=== PATIENT | female | born 1990 | race Caucasian/White ===

== ENCOUNTER 2022-01-06 20:56 | Observation (INO) | payer OTHER ==
[2022-01-06] MEDS ORDERED: MAG HYDROX/AL HYDROX/SIMETH 30 ML UNIT-DOSE CUP PO ONE (23:10)
[2022-01-06] MEDS ORDERED: FAMOTIDINE 20 MG/50 ML IVPB 20 MG/50 ML MG IVPB ONE ×2 (23:10→23:21)
[2022-01-06] MEDS ORDERED: ONDANSETRON 4 MG/2 ML VIAL IVPUSH ONE (23:10)
[2022-01-06] MEDS ORDERED: ACETAMINOPHEN 1000 MG/100 ML BAG IVPB ONE (23:10)
[2022-01-06] MEDS ORDERED: ONDANSETRON 4 MG/2 ML VIAL ONE (23:21)
[2022-01-06] MEDS ORDERED: MAG HYDROX/AL HYDROX/SIMETH 30 ML UNIT-DOSE CUP ONE (23:21)
[2022-01-06] MEDS ORDERED: ACETAMINOPHEN INJECTION 100 ML IVPB ONE (23:21)
[2022-01-06] MEDS ORDERED: LACTATED RINGERS SOLUTION 1000 ML INFUS.BAG IV ONE (23:44)
[2022-01-06 23:53] LABS: BASO % 0.4 % (0-2.0); EOS % 0.2 % (0-4.5); HEMATOCRIT 42.1 % (32.4-45.2); HEMOGLOBIN 14.6 GM/dL (10.7-15.3); LYMPH % 12.9 % (8-40); MCH 31.4 pg (25.7-33.7); MCHC 34.6 g/dl (32.0-36.0); MEAN CELL VOLUME 90.6 fl (80-96); MONO % 7.3 % (3.8-10.2); NEUT % 79.2 % (42.8-82.8); PLATELET COUNT 329 10^3/uL (134-434); RBC 4.64 M/mm3 (3.60-5.2); RDW 12.2 % (11.6-15.6)
[2022-01-07 00:11] LABS: PH,URINE 8.5 (5.0-8.0); URINE APPEARANCE CLEAR; URINE BILIRUBIN NEGATIVE (NEGATIVE); URINE COLOR YELLOW; URINE GLUCOSE (UA) NEGATIVE (NEGATIVE); URINE KETONE 1+ (NEGATIVE); URINE LEUK ESTERASE NEGATIVE (NEGATIVE); URINE NITRITE NEGATIVE (NEGATIVE); URINE PROTEIN NEGATIVE (NEGATIVE); URINE UROBILINOGEN 0.2 mg/dL (0.2-1.0)
[2022-01-07 00:18] LABS: ALBUMIN 4.3 g/dl (3.4-5.0); BLOOD UREA NITROGEN 6.5 mg/dL (7-18); CALCIUM 9.4 mg/dL (8.5-10.1)
[2022-01-07 00:21] LABS: CREATININE 0.7 mg/dL (0.55-1.3); INR 1.16 (0.83-1.09); PROTHROMBIN TIME (PATIENT) 13.4 SEC (9.7-13.0)
[2022-01-07 00:23] LABS: BILIRUBIN,TOTAL 0.4 mg/dL (0.2-1)
[2022-01-07 00:24] LABS: ACTIVATED PTT 30.2 SECONDS (25.2-36.5)
[2022-01-07] MEDS ORDERED: KETOROLAC TROMETHAMINE 15 MG/ML VIAL IVPUSH ONE (03:21)
[2022-01-07] MEDS ORDERED: KETOROLAC TROMETHAMINE 15 MG/ML VIAL ONE (03:35)
[2022-01-07] MEDS ORDERED: ONDANSETRON 4 MG/2 ML VIAL IVPUSH PRN (04:26)
[2022-01-07] MEDS ORDERED: KETOROLAC TROMETHAMINE 30 MG/1 ML VIAL IM PRN (04:28)
[2022-01-07] MEDS ORDERED: ACETAMINOPHEN 1000 MG/100 ML BAG IVPB PRN (04:28)
[2022-01-07] MEDS: SODIUM CHLORIDE 1,000 ML IV SCH (04:45)
[2022-01-07] MEDS ORDERED: ENOXAPARIN NA (PORCINE) 40 MG/0.4 ML DISP.SYRIN SQ ONE (08:47)
[2022-01-07] MEDS ORDERED: ENOXAPARIN NA (PORCINE) 40 MG/0.4 ML DISP.SYRIN SQ SCH (10:00)
[2022-01-07 10:01] LABS: BASO % 0.6 % (0-2.0); EOS % 0.8 % (0-4.5); LYMPH % 19.6 % (8-40); MCH 31.9 pg (25.7-33.7); MCHC 35.1 g/dl (32.0-36.0); MEAN CELL VOLUME 90.9 fl (80-96); MEAN PLT VOLUME 8.6 fl (7.5-11.1); MONO % 10.5 % (3.8-10.2); NEUT % 68.5 % (42.8-82.8); PLATELET COUNT 278 10^3/uL (134-434); RBC 4.08 M/mm3 (3.60-5.2); RDW 12.5 % (11.6-15.6); WHITE BLOOD COUNT 8.5 K/mm3 (4.0-10.0)
[2022-01-07] MEDS ORDERED: MAG HYDROX/AL HYDROX/SIMETH 30 ML UNIT-DOSE CUP PO PRN (14:14)
[2022-01-07] MEDS: POLYETHYLENE GLYCOL (HEALTHYLAX) 3350 17 GM PACKET PO SCH (23:03)
[2022-01-07] MEDS ORDERED: POLYETHYLENE GLYCOL (HEALTHYLAX) 3350 17 GM PACKET ONE (23:55)
[2022-01-08] MEDS: SODIUM CHLORIDE 1,000 ML IV SCH (04:01)
[2022-01-08 04:44] VITALS: BMI 26.4
[2022-01-08 09:04] LABS: BASO % 0.4 % (0-2.0); EOS % 1.3 % (0-4.5); HEMATOCRIT 38.3 % (32.4-45.2); HEMOGLOBIN 13.1 GM/dL (10.7-15.3); LYMPH % 23.3 % (8-40); MCH 31.4 pg (25.7-33.7); MCHC 34.3 g/dl (32.0-36.0); MEAN CELL VOLUME 91.4 fl (80-96); MEAN PLT VOLUME 9.3 fl (7.5-11.1); MONO % 11.2 % (3.8-10.2); NEUT % 63.8 % (42.8-82.8); PLATELET COUNT 289 10^3/uL (134-434); RBC 4.19 M/mm3 (3.60-5.2); RDW 12.8 % (11.6-15.6); WHITE BLOOD COUNT 8.2 K/mm3 (4.0-10.0)
[2022-01-08 09:30] LABS: BLOOD UREA NITROGEN 5.6 mg/dL (7-18)
[2022-01-08 09:33] LABS: CALCIUM 8.5 mg/dL (8.5-10.1); CREATININE 0.7 mg/dL (0.55-1.3); MAGNESIUM 2.3 mg/dL (1.8-2.4); PHOSPHOROUS 3.7 mg/dL (2.5-4.9)
[2022-01-08] MEDS ORDERED: PANTOPRAZOLE 20 MG TABLET PO SCH (10:00)
[2022-01-08] MEDS: POLYETHYLENE GLYCOL (HEALTHYLAX) 3350 17 GM PACKET PO SCH (10:39)
[2022-01-08 14:26] VITALS: BP 117/66; PULSE 68; TEMP 97
== END 2022-01-08 18:28 | disposition home or self-care (01) ==
LOC: JER 20:56 → JERBED 01-07 04:09 → UNDOADMOB 01-07 04:09 → INTOOBSV 01-07 04:09 → JERBED 01-07 04:26 → J5S 01-08 04:22
PROVIDERS: ADMIT Hospitalist; ATTEND Nurse Practitioner Acute Care
PROC: 0DJ08ZZ Inspection of Upper Intestinal Tract, Via Natural or Artificial Opening Endoscopic (ICD-10-PCS; principal; 2022-01-07)
DX: K21.9 Gastro-esophageal reflux disease without esophagitis (principal); R11.2 Nausea with vomiting, unspecified; D72.829 Elevated white blood cell count, unspecified; R10.13 Epigastric pain; Z29.8 Encounter for other specified prophylactic measures
CPT/HCPCS: 36415; 74177-TC; 76705-TC; 80048; 80053; 81003; 83690; 83735; 84100; 84443; 84703; 85025; 85610; 85730; 86704; 86708; 86803; 86850; 86900; 86901; 87086; 87340; 87517; 88305-TC; 93005; 93010; 99285-25; C9803-CS; G0378; Q9967; U0003; U0005

== ENCOUNTER 2024-01-19 10:52 | Emergency (ER) | payer OTHER ==
[2024-01-19 11:01] VITALS: BP 90/60; PULSE 77; RESP 18; TEMP 97.7; BMI 26.4
[2024-01-19 11:40] LABS: HCG,QUALITATIVE URINE Positive
[2024-01-19 11:41] LABS: PH,URINE 6.5 (5.0-8.0); URINE APPEARANCE CLEAR; URINE BILIRUBIN NEGATIVE (NEGATIVE); URINE COLOR YELLOW; URINE GLUCOSE (UA) NEGATIVE (NEGATIVE); URINE KETONE NEGATIVE (NEGATIVE); URINE LEUK ESTERASE NEGATIVE (NEGATIVE); URINE NITRITE NEGATIVE (NEGATIVE); URINE PROTEIN NEGATIVE (NEGATIVE)
[2024-01-19 11:46] LABS: BASO % 0.3 % (0-2.0); EOS % 0.3 % (0-4.5); HEMATOCRIT 39.9 % (32.4-45.2); LYMPH % 16.3 % (8-40); MCH 32.1 pg (25.7-33.7); MCHC 34.9 g/dl (32.0-36.0); MEAN PLT VOLUME 8.6 fl (7.5-11.1); MONO % 8.9 % (3.8-10.2); NEUT % 74.2 % (42.8-82.8); PLATELET COUNT 290 10^3/uL (134-434); RBC 4.34 M/mm3 (3.60-5.2); RDW 12.9 % (11.6-15.6); WHITE BLOOD COUNT 11.7 K/mm3 (4.0-10.0)
[2024-01-19 11:47] LABS: INR 1.14 (0.83-1.09); PROTHROMBIN TIME (PATIENT) 12.8 SEC (9.7-13.0)
[2024-01-19 11:50] LABS: ACTIVATED PTT 29.4 SECONDS (25.2-36.5)
[2024-01-19 11:57] LABS: POTASSIUM 4.1 mmol/L (3.5-5.1)
[2024-01-19 11:59] LABS: BLOOD UREA NITROGEN 10.3 mg/dL (7-18)
[2024-01-19 12:02] LABS: CREATININE 0.7 mg/dL (0.55-1.3)
== END 2024-01-19 17:08 | disposition home or self-care (01) ==
LOC: JER 10:52
DX: O09.511 Supervision of elderly primigravida, first trimester (principal); O20.0 Threatened abortion; Z3A.01 Less than 8 weeks gestation of pregnancy
CPT/HCPCS: 36415; 76817-TC; 80048; 81003; 84702; 84703; 85025; 85610; 85730; 86850; 86900; 86901; 99284-25

== ENCOUNTER 2024-01-21 08:29 | Emergency (ER) | payer OTHER ==
[2024-01-21 08:38] VITALS: BP 105/61; PULSE 79; RESP 20; TEMP 98.8; BMI 27.3
[2024-01-21 08:58] LABS: BASO % 0.5 % (0-2.0); EOS % 0.4 % (0-4.5); HEMATOCRIT 38.8 % (32.4-45.2); HEMOGLOBIN 13.3 GM/dL (10.7-15.3); LYMPH % 17.3 % (8-40); MCH 31.7 pg (25.7-33.7); MCHC 34.4 g/dl (32.0-36.0); MEAN CELL VOLUME 92.1 fl (80-96); MEAN PLT VOLUME 8.4 fl (7.5-11.1); MONO % 8.6 % (3.8-10.2); NEUT % 73.2 % (42.8-82.8); PLATELET COUNT 283 10^3/uL (134-434); RBC 4.21 M/mm3 (3.60-5.2); RDW 12.6 % (11.6-15.6); WHITE BLOOD COUNT 12.1 K/mm3 (4.0-10.0)
== END 2024-01-21 11:18 | disposition home or self-care (01) ==
LOC: JERFT 08:29
DX: O09.511 Supervision of elderly primigravida, first trimester (principal); O20.0 Threatened abortion; Z3A.01 Less than 8 weeks gestation of pregnancy
CPT/HCPCS: 36415; 76817-TC; 84702; 85025; 99284-25

== ENCOUNTER 2024-02-27 14:02 | Emergency (ER) | payer OTHER ==
[2024-02-27 14:12] VITALS: BP 108/67; PULSE 83; RESP 16; TEMP 98.6; BMI 32.8
[2024-02-27] MEDS ORDERED: ACETAMINOPHEN 325 MG TABLET (FP) ONE (15:01)
[2024-02-27] MEDS: ACETAMINOPHEN 325 MG TABLET (FP) PO ONE (15:05)
== END 2024-02-27 15:50 | disposition home or self-care (01) ==
LOC: JERFT 14:02 → JER 14:02 → JERFT 15:50
DX: O99.891 Other specified diseases and conditions complicating pregnancy (principal); R51.9 Headache, unspecified; Z3A.11 11 weeks gestation of pregnancy
CPT/HCPCS: 99283-25

== ENCOUNTER 2024-08-04 15:44 | Emergency (ER) | payer OTHER ==
[2024-08-04 15:52] VITALS: RESP 20; BMI 32.8
[2024-08-04] MEDS ORDERED: FAMOTIDINE 20 MG TABLET ONE (16:55)
[2024-08-04] MEDS ORDERED: diphenhydrAMINE HCL 25 MG CAPSULE (FP) PO ONE (16:55)
[2024-08-04] MEDS: FAMOTIDINE 20 MG TABLET PO ONE (17:04)
[2024-08-04] MEDS: diphenhydrAMINE HCL 25 MG CAPSULE (FP) PO ONE (17:04)
[2024-08-04 17:09] LABS: BASO % 0.3 % (0-2.0); HEMATOCRIT 35.1 % (32.4-45.2); LYMPH % 12.5 % (8-40); MCH 31.4 pg (25.7-33.7); MCHC 34.1 g/dl (32.0-36.0); MEAN PLT VOLUME 9.1 fl (7.5-11.1); MONO % 9.6 % (3.8-10.2); NEUT % 76.6 % (42.8-82.8); PLATELET COUNT 231 10^3/uL (134-434); RBC 3.81 M/mm3 (3.60-5.2); RDW 13.3 % (11.6-15.6); WHITE BLOOD COUNT 11.9 K/mm3 (4.0-10.0)
[2024-08-04 17:32] LABS: POTASSIUM 3.7 mmol/L (3.5-5.1)
[2024-08-04 17:34] LABS: ALBUMIN 2.6 g/dl (3.4-5.0); BLOOD UREA NITROGEN 7.2 mg/dL (7-18); CALCIUM 9.4 mg/dL (8.5-10.1)
[2024-08-04 17:38] LABS: CREATININE 0.5 mg/dL (0.55-1.3)
[2024-08-04 17:39] LABS: BILIRUBIN,TOTAL 0.3 mg/dL (0.2-1); TOT PROT 5.7 g/dl (6.4-8.2)
[2024-08-04 20:39] VITALS: BP 111/76; PULSE 88; TEMP 98.2
[2024-08-10 20:11] LABS: CHENODEOXYCHOLIC ACID 1.1 umol/L (.); URSODEOXYCHOLIC ACID UDC < 0.10 umol/L (.)
== END 2024-08-04 22:30 | disposition home or self-care (01) ==
LOC: JER 15:44
DX: L29.9 Pruritus, unspecified (principal)
CPT/HCPCS: 36415; 76819-TC; 80053; 82542; 85025; 99284-25

== ENCOUNTER 2024-09-10 08:30 | Inpatient (IN) | payer OTHER ==
[2024-09-10] MEDS: LACTATED RINGERS SOLUTION 1,000 ML IV SCH (09:00)
[2024-09-10 10:32] LABS: INR 1.08 (0.83-1.09); PROTHROMBIN TIME (PATIENT) 11.8 SEC (9.7-13.0)
[2024-09-10 10:45] LABS: CALCIUM 9.1 mg/dL (8.5-10.1); POTASSIUM 3.8 mmol/L (3.5-5.1)
[2024-09-10 10:47] LABS: BLOOD UREA NITROGEN 9.9 mg/dL (7-18)
[2024-09-10 10:51] LABS: CREATININE 0.5 mg/dL (0.55-1.3)
[2024-09-10 10:56] VITALS: BMI 32.8
[2024-09-10 10:56] LABS: BASO % 0.3 % (0-2.0); HEMATOCRIT 33.6 % (32.4-45.2); HEMOGLOBIN 11.7 GM/dL (10.7-15.3); LYMPH % 17.7 % (8-40); MCH 32.3 pg (25.7-33.7); MCHC 34.9 g/dl (32.0-36.0); MEAN CELL VOLUME 92.5 fl (80-96); PLATELET COUNT 199 10^3/uL (134-434); RBC 3.64 M/mm3 (3.60-5.2); RDW 13.3 % (11.6-15.6); WHITE BLOOD COUNT 10.2 K/mm3 (4.0-10.0)
[2024-09-10] MEDS: DINOPROSTONE 10 MG VAGINAL SUPPOSITORY VG ONE (11:45)
[2024-09-10] MEDS ORDERED: PROMETHAZINE HCL 25 MG/1 ML VIAL ONE (23:11)
[2024-09-10] MEDS ORDERED: BUTORPHANOL TARTRATE 2 MG/ML VIAL ONE (23:11)
[2024-09-10] MEDS: BUTORPHANOL TARTRATE 1 MG/ML VIAL IVPB ONE (23:15)
[2024-09-10] MEDS: PROMETHAZINE HCL 25 MG/1 ML VIAL IVPB ONE (23:15)
[2024-09-11] MEDS: OXYTOCIN 30 UNITS in 0.9% NS 30 UNIT/500 ML INFUS.BAG IVPB SCH (05:50)
[2024-09-11] MEDS: IRON SUCROSE INJECTION 200 MG in SODIUM CHLORIDE 100 ML IVPB ONE (10:34)
[2024-09-11] MEDS ORDERED: FENTANYL/BUPIVACAINE/NS/PF - PCEA - 50 ML DISP.SYRIN EP ONE ×3 (11:17→19:55)
[2024-09-11] MEDS: FENTANYL/BUPIVACAINE/NS/PF - PCEA - 50 ML DISP.SYRIN EP SCH (11:50)
[2024-09-11] MEDS ORDERED: NALOXONE HCL 0.4 MG/ML VIAL IVPUSH PRN (12:02)
[2024-09-11] MEDS: CITRIC ACID/SODIUM CITRATE 30 ML UNIT-DOSE CUP PO ONE (21:10)
[2024-09-11] MEDS ORDERED: FENTANYL CITRATE/PF 50 MCG/ML VIAL ONE (21:33)
[2024-09-11] MEDS ORDERED: morphine SULFATE/PF 1 MG/2 ML (2cc Syringe - QUVA) ONE (21:33)
[2024-09-11] MEDS ORDERED: AZITHROMYCIN IVPB 500 MG/250 ML BAG IVPB ONE (22:00)
[2024-09-11] MEDS: AZITHROMYCIN IVPB 500 MG/250 ML BAG IVPB ONE (22:02)
[2024-09-11] MEDS ORDERED: TRIAMCINOLONE ACETONIDE 40 MG/ML 10 ML VIAL ONE (22:11)
[2024-09-11] MEDS: TRIAMCINOLONE ACETONIDE 40 MG/ML 10 ML VIAL SQ ONE (22:40)
[2024-09-11 22:55] LABS: CORD BASE EXCESS -6.9 mmol/L (0-2); CORD HCO3 19.7 mmHg (20-29); CORD PCO2 43.1 mmHg (30-78); CORD pH 7.277 (7.14-7.44)
[2024-09-11 22:56] LABS: CORD BASE EXCESS -5.7 mmol/L (0-2); CORD HCO3 20.4 mmHg (20-29); CORD PCO2 42.2 mmHg (30-78); CORD pH 7.303 (7.14-7.44)
[2024-09-11] MEDS ORDERED: SUCCINYLCHOLINE CHLORIDE 200 MG/10 ML SYRINGE ONE (23:08)
[2024-09-11] MEDS ORDERED: METHYLERGONOVINE MALEATE 0.2 MG/1 ML AMP IM PRN (23:09)
[2024-09-11] MEDS: OXYTOCIN 20 UNITS in 0.9% NS 20 UNIT/1,000 ML INFUS.BAG IV SCH (23:15)
[2024-09-11] MEDS ORDERED: PROPOFOL 20 ML ONE (23:35)
[2024-09-12 07:46] LABS: HEMATOCRIT 29.7 % (32.4-45.2); HEMOGLOBIN 10.1 GM/dL (10.7-15.3); MCH 31.7 pg (25.7-33.7); MCHC 34.1 g/dl (32.0-36.0); MEAN CELL VOLUME 92.8 fl (80-96); MEAN PLT VOLUME 9.9 fl (7.5-11.1); PLATELET COUNT 177 10^3/uL (134-434); RDW 13.6 % (11.6-15.6)
[2024-09-12] MEDS: ENOXAPARIN NA (PORCINE) 40 MG/0.4 ML DISP.SYRIN SQ SCH (09:02)
[2024-09-12] MEDS: FERROUS SO4 325 MG TABLET (FP) PO SCH (09:02)
[2024-09-12] MEDS: oxyCODONE HCL 5 MG TABLET PO PRN (10:48)
[2024-09-12] MEDS: PRENATAL VITAMINS W/ FOLIC ACID TABLET (FP) PO SCH (12:19)
[2024-09-12] MEDS: IBUPROFEN 800 MG/8 ML IJ IVPB PRN (15:59)
[2024-09-12] MEDS: SENNOSIDES/DOCUSATE COMBO (SENNA PLUS) TABLET (UD) PO PRN (21:16)
[2024-09-12] MEDS: SIMETHICONE 80 MG TAB.CHEW (FP) PO PRN (21:16)
[2024-09-12] MEDS ORDERED: BISACODYL 10 MG SUPP.RECT RC PRN (23:09)
[2024-09-13] MEDS: ACETAMINOPHEN 325 MG TABLET (FP) PO PRN (05:57)
[2024-09-13 06:21] LABS: BASO % 0.1 % (0-2.0); EOS % 0.3 % (0-4.5); HEMATOCRIT 28.8 % (32.4-45.2); HEMOGLOBIN 9.6 GM/dL (10.7-15.3); MCH 31.3 pg (25.7-33.7); MCHC 33.4 g/dl (32.0-36.0); MEAN CELL VOLUME 93.8 fl (80-96); MEAN PLT VOLUME 9.6 fl (7.5-11.1); MONO % 8.7 % (3.8-10.2); NEUT % 80.9 % (42.8-82.8); PLATELET COUNT 208 10^3/uL (134-434); RBC 3.07 M/mm3 (3.60-5.2); RDW 13.7 % (11.6-15.6)
[2024-09-13] MEDS: IBUPROFEN 600 MG TABLET (FP) PO PRN (10:55)
[2024-09-13] MEDS: oxyCODONE HCL 5 MG TABLET PO PRN (23:10)
[2024-09-14 08:16] LABS: BASO % 0.2 % (0-2.0); EOS % 0.3 % (0-4.5); HEMATOCRIT 31.2 % (32.4-45.2); HEMOGLOBIN 10.6 GM/dL (10.7-15.3); LYMPH % 12.1 % (8-40); MCH 31.7 pg (25.7-33.7); MCHC 34.1 g/dl (32.0-36.0); MEAN CELL VOLUME 92.9 fl (80-96); MEAN PLT VOLUME 9.6 fl (7.5-11.1); MONO % 6.9 % (3.8-10.2); NEUT % 80.5 % (42.8-82.8); PLATELET COUNT 245 10^3/uL (134-434); RBC 3.36 M/mm3 (3.60-5.2); RDW 13.8 % (11.6-15.6); WHITE BLOOD COUNT 14.5 K/mm3 (4.0-10.0)
[2024-09-14 13:38] VITALS: BP 116/78; PULSE 80; RESP 17; TEMP 97.9
== END 2024-09-14 13:30 | disposition home or self-care (01) | DRG 540 ==
LOC: JLDR 08:30 → J3W 09-12 01:23
PROVIDERS: ADMIT Specialist; ATTEND Specialist
PROC: 10D00Z1 Extraction of Products of Conception, Low, Open Approach (ICD-10-PCS; principal; 2024-09-11)
DX: O62.1 Secondary uterine inertia (principal); Z3A.39 39 weeks gestation of pregnancy; Z37.0 Single live birth
CPT/HCPCS: 36415; 36600; 80048; 80053; 82803; 85025; 85027; 85610; 85730; 86780; 86850; 86900; 86901; 87389; 88307-TC; 94010